=== PATIENT | female | born 1960 | race Caucasian/White ===

== ENCOUNTER 2020-05-25 17:00 | Outpatient (CLI) | payer OTHER, SELFPAY ==
--- NOTE | ~2020-05-25 | XR_ITS ---
XR foot RT 2V 05/25/2020 17:25 Indication: Right fifth toe pain. Trauma 8 weeks ago. Procedure: 2 views right foot Comparison: 06/07/2018 Findings: There is a healing nondisplaced extra-articular fracture right fifth proximal phalanx. Ther e is associated callus formation. No other fracture. Lisfranc joint intact. Impression: 1: Healing nondisplaced extra-articular fracture right fifth proximal phalanx. Reviewed, dictated and finalized at location A. Impression: 1: Healing nondisplaced extra-articular fracture right fifth proximal phalanx.
== END 2020-05-25 17:01 | disposition home or self-care (01) ==
PROVIDERS: PCP Family Medicine; Visit Provider Family Medicine
DX: M79.671 Pain in right foot (principal); S92.514D Nondisplaced fracture of proximal phalanx of right lesser toe(s), subsequent encounter for fracture with routine healing
CPT/HCPCS: 73620

== ENCOUNTER 2020-07-04 14:03 | Outpatient (CLI) | payer OTHER, SELFPAY ==
--- NOTE | ~2020-07-04 | XR_ITS ---
XR foot RT 2V DATE: 07/04/2020 14:24 INDICATION: Unspecified fracture of right toe TECHNIQUE: AP and lateral views COMPARISON: 05/25/2020 right foot FINDINGS: There is a linear oblique fracture through the distal shaft, neck and head of the proximal phalanx of the fifth toe, with mild lateral displacement. No significant change in position or alignm ent since 05/25/2020. There is callus formation consistent with healing. No other fracture or dislocation. IMPRESSION: Healing fracture of the proximal phalanx of the fifth toe Reviewed, dictated and finalized at location A.
== END 2020-07-04 14:04 | disposition home or self-care (01) ==
PROVIDERS: PCP Family Medicine; Visit Provider Physician Assistant
DX: S92.911D Unspecified fracture of right toe(s), subsequent encounter for fracture with routine healing (principal); X58.XXXD Exposure to other specified factors, subsequent encounter
CPT/HCPCS: 73620

== ENCOUNTER 2021-12-29 13:29 | Emergency (ER) | payer OTHER, SELFPAY ==
--- NOTE | ~2021-12-29 | XR_ITS ---
EXAMINATION: XR finger 5th LT min 2V DATE: 12/29/2021 13:51 INDICATION: Left hand fifth digit pain. Fall. TECHNIQUE: 4 views of left hand fifth digit were obtained. COMPARISON: None. FINDINGS: There is an oblique fracture of metaphysis of fifth proximal phalanx. The distal fracture f ragment demonstrates 5 mm palmar displacement, 38 degrees dorsal angulation, and 12 degrees medial an gulation. Joint spaces are normal. IMPRESSION: 1. Oblique fracture of metaphysis of fifth proximal phalanx. Reviewed, dictated and finalized at location A. SETTER
[2021-12-29 13:41] VITALS: BP 184/94; PULSE 84; RESP 18; TEMP 36.6; O2SAT 100
--- NOTE | 2021-12-29 13:51 | ED.UPPEXIN ---
HPI - Extremity Injury (Upper) General Chief Complaint: Extremity Injury, Upper Stated Complaint: fall/lt hand injury Time Seen by Provider: 12/29/21 13:52 Source: patient, RN notes reviewed and old records reviewed Mode of arrival: ambulatory Limitations: no limitations History of Present Illness HPI narrative: 61 year old female who presents to express care with complaints of fall onto her left 5th finger when she tripped on the court while playing tennis.She also has small abrasion to her left knee but denies any other injury or pain, denies hitting her head. Patient has tear to skin of radial side of 5th finger nail tissue no tear or injury to nail. She has obvious swelling and deformity noted to the left 5th finger proximal aspect of finger with stated pain, can't take Ibuprofen because of kidney cyst. MD complaint: injury to: left and finger (5th) Onset (ago): minute(s) (30 minutes ago) Other Extremity Injury: Left: fingers (5th) Related Data Allergies Allergy/AdvReac Type Severity Reaction Status Date / Time Sulfa (Sulfonamide Allergy Unknown Rash Verified 12/29/21 13:45 Antibiotics) Review of Systems Review of Systems: CONSTITUTIONAL: Denies fever, chills, or sweats. EYES: Denies visual changes, redness, or discharge. ENT: Denies rhinorrhea, congestion, sore throat, or otalgia. CARDIOVASCULAR: Denies chest pain, palpitations, or edema. RESPIRATORY: Denies cough or dyspnea. GASTROINTESTINAL: Denies abdominal pain, nausea, vomiting, or diarrhea. GENITOURINARY: Denies dysuria or hematuria. SKIN: Denies rash or itching. MUSCULOSKELETAL: Denies back pain, positive for left 5th finger joint pain and swelling, or myalgia. NEUROLOGIC: Denies headache, numbness, or weakness. PSYCHIATRIC: Positive for history of anxiety or depression. All systems reviewed & are unremarkable except as noted in HPI and below PMFSH Past Medical History Medical History (Updated 12/29/21 @ 14:38 by Whitney Hills NP) Anxiety Cyst of kidney, acquired Diverticulitis GERD (gastroesophageal reflux disease) HLD (hyperlipidemia) Osteoporosis Surgical History Surgical History (Updated 12/29/21 @ 14:12 by Whitney Hills NP) H/O: hysterectomy has one ovary and tube Family History Family History Sibling Depression Family history of diabetes mellitus in first degree relative Patient's sister is in good health Father Family history of heart disease in male family member before age 55 Other Cerebrovascular accident Diabetes mellitus Family history of coronary artery disease Family history of hypercholesterolemia Family history of malignant neoplasm of uterus Family history of mental disorder Hypertension Social History Social History Smoking status: Former smoker Second hand tobacco smoke exposure: No Smoking end date: 10/26/11 Alcohol intake: current Comments At time of signature, agree with nursing past medical, surgical, social and family history. There is no relevant family history pertinent to the presenting complaint Exam Narrative: GENERAL: Well-appearing, well-nourished, and in no acute distress. HEAD: Normocephalic, atraumatic. EYES: PERRLA and EOMI. ENT: Nares clear, no rhinorrhea or epistaxis. Mucous membranes moist. NECK: Supple.no lymphadenopathy CHEST: Clear to auscultation. No respiratory distress.SAO2 100% on room air HEART: Regular rate and rhythm. No murmur heard. Normal peripheral pulses. ABDOMEN: Soft, nontender, nondistended, normal active bowel sounds. EXTREMITIES: Normal range of motion. No edema.Exception noted to left 5th finger with obvious swelling and deformity noted at proximal and PIP of left 5th finger after fall onto hand when she tripped and fell at tennis court today, circulation and sensation is intact, unable to fully move left 5th finger. SKIN: Warm, dry, no rash
== END 2021-12-29 14:47 | disposition home or self-care (01) ==
PROVIDERS: Emergency Provider Registered Nurse; PCP Family Medicine
DX: S62.617A Displaced fracture of proximal phalanx of left little finger, initial encounter for closed fracture (principal); W01.0XXA Fall on same level from slipping, tripping and stumbling without subsequent striking against object, initial encounter; Y93.73 Activity, racquet and hand sports; K21.9 Gastro-esophageal reflux disease without esophagitis; E78.5 Hyperlipidemia, unspecified; M81.0 Age-related osteoporosis without current pathological fracture; Z87.891 Personal history of nicotine dependence
CPT/HCPCS: 29130; 73140; 99214; G0463

== ENCOUNTER 2022-01-06 14:33 | Outpatient (CLI) | payer OTHER, SELFPAY ==
--- NOTE | ~2022-01-06 | XR_ITS ---
XR hand LT min 3V DATE: 01/06/2022 14:48 INDICATION: Post reduction of fifth digit fracture one week ago TECHNIQUE: 4 views COMPARISON: 12/29/2021 left fifth digit FINDINGS: There is a linear oblique fracture through the metaphysis and proximal shaft of the proxima l phalanx of the fifth digit greater than 50% anterior displacement and approximately 1.4 mm ulnar di splacement, with minimal angulation deformity. There is a dorsal splint of the fifth digit. IMPRESSION: Splinted fracture of proximal phalanx of fifth digit with reduction of prominent apex ant erior angulation since 12/29/2021 Reviewed, dictated and finalized at location A. IMPRESSION: Splinted fracture of proximal phalanx of fifth digit with reduction of prominent apex anterior angulation since 12/29/2021
== END 2022-01-06 14:34 | disposition home or self-care (01) ==
LOC: ANHIMG 14:36
PROVIDERS: PCP Family Medicine; Visit Provider Plastic Surgery
DX: S62.617D Displaced fracture of proximal phalanx of left little finger, subsequent encounter for fracture with routine healing (principal); X58.XXXD Exposure to other specified factors, subsequent encounter
CPT/HCPCS: 73130

== ENCOUNTER 2022-05-14 14:13 | Outpatient (CLI) | payer OTHER, SELFPAY ==
--- NOTE | ~2022-05-14 | XR_ITS ---
XR hand LT min 3V DATE: 05/14/2022 14:35 INDICATION: Fracture of left fifth proximal phalanx on 12/29/2021 TECHNIQUE: 3 views of left hand COMPARISON: 12/29/2021 left fifth digit 01/06/2022 left hand FINDINGS: There is organized callus formation bridging the fracture of the metaphysis of the proximal phalanx of the fifth digit. There is up to proxy 20 degrees apex anterior angulation. Diffuse osteopenia. Osteoarthritis at first carpometacarpal joint. IMPRESSION: Advanced healing of metaphyseal fracture of proximal phalanx of fifth digit with apex ant erior angulation measuring up to approximately 39 degrees Reviewed, dictated and finalized at location B. IMPRESSION: Advanced healing of metaphyseal fracture of proximal phalanx of fif th digit with apex anterior angulation measuring up to approximately 39 degrees
== END 2022-05-14 14:14 | disposition home or self-care (01) ==
PROVIDERS: PCP Family Medicine; Visit Provider Plastic Surgery
DX: S62.617D Displaced fracture of proximal phalanx of left little finger, subsequent encounter for fracture with routine healing (principal); X58.XXXD Exposure to other specified factors, subsequent encounter
CPT/HCPCS: 73130

== ENCOUNTER → 2022-08-08 02:14 | Outpatient (CLI) | payer OTHER, SELFPAY ==
[2022-08-08 11:23] LABS: SARS-CoV-2 RNA PCR Negative
== END ==
PROVIDERS: PCP Physician Assistant; Visit Provider Physician Assistant
DX: R05.9 Cough, unspecified (principal); Z20.822 Contact with and (suspected) exposure to COVID-19
CPT/HCPCS: C9803; U0003; U0005

== ENCOUNTER 2022-12-18 01:22 | Day surgery (SDC) | payer OTHER, SELFPAY ==
[2022-12-10 15:12] VITALS: BMI 21.9
--- NOTE | 2022-12-18 10:54 | PM.HPGS ---
History of Present Illness History of Present Illness Consent: Risks, benefits, and alternatives have been discussed and questions answered. Patient agrees to proceed with procedure. Chief complaint: neoplasm screening Narrative: Abigail Jenkins is a 62 year old female with referred for colon cancer screening. Her last colonoscopy was 10 years ago and was unremarkable except for some diverticulosis. Review of Systems Review of Systems: All systems reviewed & are unremarkable except as noted in HPI and below PMFSH Past Medical History Medical History Anxiety Cyst of kidney, acquired Diverticulitis GERD (gastroesophageal reflux disease) HLD (hyperlipidemia) Osteoporosis Surgical History Surgical History H/O: hysterectomy has one ovary and tube Family History Family History Sibling Depression Family history of diabetes mellitus in first degree relative Patient's sister is in good health Father Family history of heart disease in male family member before age 55 Other Cerebrovascular accident Diabetes mellitus Family history of coronary artery disease Family history of hypercholesterolemia Family history of malignant neoplasm of uterus Family history of mental disorder Hypertension Social History Social History Smoking status: Former smoker Tobacco type: cigarettes Second hand tobacco smoke exposure: No Smoking end date: 10/26/11 Alcohol intake: current Drinks per week: 6 Substance use type: does not use Living arrangements: with family Spiritual care concerns: No Meds Home Medications and Allergies Home Medications Medication Instructions Recorded Confirmed Type Lactobacillus 1 cap PO DAILY 12/10/22 12/18/22 History acidophilus-Bifidobac.animalis 2.5 billion cell capsule (Daily Probiotic) aspirin 81 mg tablet 81 mg PO DAILY 12/10/22 12/18/22 History cholecalciferol (vitamin D3) 25 25 mcg PO DAILY 12/10/22 12/18/22 History mcg (1,000 unit) tablet glucosamine sulfate 750 mg tablet 750 mg PO DAILY 12/10/22 12/18/22 History Allergies Allergy/AdvReac Type Severity Reaction Status Date / Time Sulfa (Sulfonamide Allergy Unknown Rash Verified 12/18/22 11:48 Antibiotics) Exam Const: General: alert Orientation/consciousness: patient oriented x3 Resp: Auscultation: clear to auscultation bilaterally Cardio: Rhythm: regular rhythm GI: GI Palp: Yes Soft to palpation and No Tenderness to palpation present (GI) Neuro: General: patient oriented x3 Assessment and Plan Assessment and plan (1) Colon cancer screening: Code(s): Z12.11 - Encounter for screening for malignant neoplasm of colon Status: Acute Assessment and Plan: Colonoscopy with possible biopsy or polypectomy or cautery or injection of substances.
[2022-12-18 11:50] VITALS: BP 131/80; PULSE 81; RESP 16; TEMP 36.2; O2SAT 100
[2022-12-18] MEDS: LACTATED RINGERS 1,000 ML 150 ML IV CONT (12:00)
--- NOTE | 2022-12-18 12:18 | WPDANESEPPF ---
Anes - Initial Pre Proc Eval Procedure: Operation Date: 12/18/22 13:00 Proposed Procedures p Screening Colonoscopy - Ronan Colin MD Date/Time: 12/18/22 12:18 Surgeon: Ronan Colin MD Pre Op Diagnosis: neoplasm screening Patient Data Age: 62 Gender: F Height: 1.57 m Weight: 54.8 kg Last Vital Signs Temp 97.1 F L 12/18/22 11:50 Pulse 81 12/18/22 11:50 Resp 16 12/18/22 11:50 BP 131/80 12/18/22 11:50 Pulse Ox 100 12/18/22 11:50 O2 Del Method Room Air 12/18/22 11:50 Allergies Allergy/AdvReac Type Severity Reaction Status Date / Time Sulfa (Sulfonamide Allergy Unknown Rash Verified 12/18/22 11:48 Antibiotics) Home Medications Medication Instructions Recorded Confirmed Type Lactobacillus 1 cap PO DAILY 12/10/22 12/18/22 History acidophilus-Bifidobac.animalis 2.5 billion cell capsule (Daily Probiotic) aspirin 81 mg tablet 81 mg PO DAILY 12/10/22 12/18/22 History cholecalciferol (vitamin D3) 25 25 mcg PO DAILY 12/10/22 12/18/22 History mcg (1,000 unit) tablet glucosamine sulfate 750 mg tablet 750 mg PO DAILY 12/10/22 12/18/22 History Patient hx anesthesia problems: none Family hx anesthesia problems: none Results Review: All pre-operative results and documents have been reviewed as part of the pre-operative evaluation. [facility] Past Medical History Medical History (Updated 12/18/22 @ 10:55 by Ronan Colin MD) Anxiety Cyst of kidney, acquired Diverticulitis GERD (gastroesophageal reflux disease) HLD (hyperlipidemia) Osteoporosis Surgical History Surgical History (Updated 12/29/21 @ 14:12 by Whitney Hills NP) H/O: hysterectomy has one ovary and tube Family History Family History Sibling Depression Family history of diabetes mellitus in first degree relative Patient's sister is in good health Father Family history of heart disease in male family member before age 55 Other Cerebrovascular accident Diabetes mellitus Family history of coronary artery disease Family history of hypercholesterolemia Family history of malignant neoplasm of uterus Family history of mental disorder Hypertension Social History Social History Smoking status: Former smoker Tobacco type: cigarettes Second hand tobacco smoke exposure: No Smoking end date: 10/26/11 Alcohol intake: current Drinks per week: 6 Substance use type: does not use Living arrangements: with family Spiritual care concerns: No Anes - Eval Final PreProcedure Day of Procedure 12/18/22 12:18 Patient weight: normal Heart: regular rate and rhythm Lungs: clear to auscultation Airway: Mallampati scale class II Neurological: alert and oriented Last oral intake: >/= 8 hours ASA classification: II Emergent: no Anesthetic plan: proceed Anesthesia type and monitoring: general GIVS and standard monitoring Results Review: All pre-operative results and documents have been reviewed as part of the pre-operative evaluation. Informed Consent: The patient's anesthetic plan and its attendant risks and benefits were discussed with the patient/family/POA. Questions were solicited and answers provided to the satisfaction of the patient/family/POA.
[2022-12-18 12:48] VITALS: BP 125/70; PULSE 72; RESP 22; O2SAT 100
[2022-12-18 12:58] VITALS: BP 126/74; PULSE 61; RESP 16; O2SAT 100
[2022-12-18 13:08] VITALS: BP 146/74; PULSE 62; RESP 22; O2SAT 100
== END 2022-12-18 13:19 | disposition home or self-care (01) ==
PROVIDERS: PCP Physician Assistant; Visit Provider Internal Medicine Gastroenterology
PROC: 0DJD8ZZ Inspection of Lower Intestinal Tract, Via Natural or Artificial Opening Endoscopic (ICD-10-PCS; CPT 45378; principal; 2022-12-18 13:00)
DX: Z12.11 Encounter for screening for malignant neoplasm of colon (principal); K62.1 Rectal polyp; K57.30 Diverticulosis of large intestine without perforation or abscess without bleeding; E78.5 Hyperlipidemia, unspecified; K21.9 Gastro-esophageal reflux disease without esophagitis; M81.0 Age-related osteoporosis without current pathological fracture; F41.9 Anxiety disorder, unspecified; Z87.891 Personal history of nicotine dependence; Z79.82 Long term (current) use of aspirin
CPT/HCPCS: 45380; 88305; J2704; J7120

== ENCOUNTER 2023-02-11 01:16 | Day surgery (SDC) | payer OTHER, SELFPAY ==
[2023-02-10 08:54] VITALS: BMI 22.1
--- NOTE | 2023-02-10 13:33 | PM.HPGS ---
History of Present Illness History of Present Illness Consent: Risks, benefits, and alternatives have been discussed and questions answered. Patient agrees to proceed with procedure. Chief complaint: hematochezia, Rectal Mass Narrative: Abigail Jenkins is a 62 year old female who recently underwent screening colonoscopy with removal of 1 small rectal polyp. She has had blood her stools since that procedure and states she had some of it prior to then as well. She feels the urge to defecate. She was seen in the office this week and rectal exam reveals nodularity in the posterior rectum. Review of Systems Review of Systems: All systems reviewed & are unremarkable except as noted in HPI and below PMFSH Past Medical History Medical History Anxiety Cyst of kidney, acquired Diverticulitis GERD (gastroesophageal reflux disease) Hematochezia HLD (hyperlipidemia) Hyperplastic colon polyp Osteoporosis Rectal mass Rectal pain Surgical History Surgical History H/O: hysterectomy has one ovary and tube Family History Family History Sibling Depression Family history of diabetes mellitus in first degree relative Patient's sister is in good health Father Family history of heart disease in male family member before age 55 Other Cerebrovascular accident Diabetes mellitus Family history of coronary artery disease Family history of hypercholesterolemia Family history of malignant neoplasm of uterus Family history of mental disorder Hypertension Social History Social History Smoking status: Former smoker Tobacco type: cigarettes Second hand tobacco smoke exposure: No Smoking end date: 10/26/11 Alcohol intake: current Drinks per week: 6 Substance use: never Substance use type: does not use Living arrangements: with family Spiritual care concerns: No Meds Home Medications and Allergies Home Medications Medication Instructions Recorded Confirmed Type Lactobacillus 1 cap PO DAILY 12/10/22 02/10/23 History acidophilus-Bifidobac.animalis 2.5 billion cell capsule (Daily Probiotic) aspirin 81 mg tablet 81 mg PO DAILY 12/10/22 02/10/23 History cholecalciferol (vitamin D3) 25 25 mcg PO DAILY 12/10/22 02/10/23 History mcg (1,000 unit) tablet glucosamine sulfate 750 mg tablet 750 mg PO DAILY 12/10/22 02/10/23 History tramadol 50 mg tablet 50 mg PO Q6H PRN pain #10 tabs 02/09/23 02/10/23 Rx Allergies Allergy/AdvReac Type Severity Reaction Status Date / Time Sulfa (Sulfonamide Allergy Unknown Rash Verified 02/09/23 13:57 Antibiotics) Exam Const: General: alert Orientation/consciousness: patient oriented x3 Resp: Auscultation: clear to auscultation bilaterally Cardio: Rhythm: regular rhythm GI: GI Palp: Yes Soft to palpation and No Tenderness to palpation present (GI) Neuro: General: patient oriented x3 Assessment and Plan Assessment and plan (1) Rectal mass: Code(s): K62.89 - Other specified diseases of anus and rectum Status: Acute Assessment and Plan: Sigmoidoscopy with possible biopsy or polypectomy or cautery or injection of substances.
[2023-02-11 13:06] VITALS: BP 143/73; PULSE 72; RESP 16; TEMP 36.5; O2SAT 100
[2023-02-11] MEDS: LACTATED RINGERS 1,000 ML 150 ML IV CONT (13:11)
--- NOTE | 2023-02-11 13:16 | WPDANESEPPF ---
Anes - Initial Pre Proc Eval Procedure: Operation Date: 02/11/23 14:00 Proposed Procedures p Flexible Sigmoidoscopy - Ronan Colin MD Date/Time: 02/11/23 13:16 Surgeon: Ronan Colin MD Pre Op Diagnosis: hematochezia, Rectal Mass Patient Data Age: 62 Gender: F Height: 1.57 m Weight: 53.3 kg Last Vital Signs Temp 97.7 F 02/11/23 13:06 Pulse 72 02/11/23 13:06 Resp 16 02/11/23 13:06 BP 143/73 H 02/11/23 13:06 Pulse Ox 100 02/11/23 13:06 O2 Del Method Room Air 02/11/23 13:06 Allergies Allergy/AdvReac Type Severity Reaction Status Date / Time Sulfa (Sulfonamide Allergy Unknown Rash Verified 02/11/23 13:05 Antibiotics) Home Medications Medication Instructions Recorded Confirmed Type Lactobacillus 1 cap PO DAILY 12/10/22 02/11/23 History acidophilus-Bifidobac.animalis 2.5 billion cell capsule (Daily Probiotic) cholecalciferol (vitamin D3) 25 25 mcg PO DAILY 12/10/22 02/11/23 History mcg (1,000 unit) tablet glucosamine sulfate 750 mg tablet 750 mg PO DAILY 12/10/22 02/11/23 History tramadol 50 mg tablet 50 mg PO Q6H PRN pain #10 tabs 02/09/23 02/11/23 Rx Patient hx anesthesia problems: none Family hx anesthesia problems: none Results Review: All pre-operative results and documents have been reviewed as part of the pre-operative evaluation. [facility] Past Medical History Medical History Anxiety Cyst of kidney, acquired Diverticulitis GERD (gastroesophageal reflux disease) Hematochezia HLD (hyperlipidemia) Hyperplastic colon polyp Osteoporosis Rectal mass Rectal pain Surgical History Surgical History H/O: hysterectomy has one ovary and tube Family History Family History Sibling Depression Family history of diabetes mellitus in first degree relative Patient's sister is in good health Father Family history of heart disease in male family member before age 55 Other Cerebrovascular accident Diabetes mellitus Family history of coronary artery disease Family history of hypercholesterolemia Family history of malignant neoplasm of uterus Family history of mental disorder Hypertension Social History Social History Smoking status: Former smoker Tobacco type: cigarettes Second hand tobacco smoke exposure: No Smoking end date: 10/26/11 Alcohol intake: current Drinks per week: 6 Substance use: never Substance use type: does not use Living arrangements: with family Spiritual care concerns: No Anes - Eval Final PreProcedure Day of Procedure 02/11/23 13:16 Patient weight: normal Heart: regular rate and rhythm Lungs: clear to auscultation Airway: Mallampati scale class II Neurological: alert and oriented Last oral intake: >/= 8 hours ASA classification: II Emergent: no Anesthetic plan: proceed Anesthesia type and monitoring: general GIVS and standard monitoring Results Review: All pre-operative results and documents have been reviewed as part of the pre-operative evaluation. Informed Consent: The patient's anesthetic plan and its attendant risks and benefits were discussed with the patient/family/POA. Questions were solicited and answers provided to the satisfaction of the patient/family/POA.
[2023-02-11 13:33] VITALS: BP 117/75; PULSE 74; RESP 18; O2SAT 99
[2023-02-11 13:43] VITALS: BP 127/65; PULSE 68; RESP 18; O2SAT 99
[2023-02-11 13:53] VITALS: BP 145/92; PULSE 70; RESP 20; O2SAT 99
== END 2023-02-11 14:01 | disposition home or self-care (01) ==
PROVIDERS: PCP Physician Assistant; Visit Provider Internal Medicine Gastroenterology
PROC: 0DJD8ZZ Inspection of Lower Intestinal Tract, Via Natural or Artificial Opening Endoscopic (ICD-10-PCS; CPT 45330; principal; 2023-02-11 14:00)
DX: C20 Malignant neoplasm of rectum (principal); Z87.891 Personal history of nicotine dependence
CPT/HCPCS: 45331; 88305; J2704; J7120

== ENCOUNTER 2023-10-16 17:43 | Emergency (ER) | payer OTHER, SELFPAY ==
[2023-10-16] VITALS (9 sets, daily range): BP systolic 125–156; BP diastolic 69–94; PULSE 82–100; RESP 13–18; TEMP 36.4–36.7; O2SAT 95–100
--- NOTE | ~2023-10-16 | CT_ITS ---
EXAMINATION: CT abdomen pelvis w con DATE: 10/16/2023 19:44 INDICATION: Bleeding from rectal incision site. Surgery on September 16, 2023 for rectal cancer. TECHNIQUE: Computed tomography (CT) of the abdomen and pelvis was performed with 100 CC Omnipaque 350 intravenous contrast. Automated exposure control and iterative reconstruction technique were employe d. Exam dose: 202.68 mGy-cm total exam DLP. COMPARISON: 03/01/2016 CT abdomen pelvis FINDINGS: The lung bases are clear of infiltrate or consolidation. Normal heart size. No pericardial or pleural effusion. The gallbladder is present. No gallbladder wall thickening or pericholecystic fluid or fat stranding. No bile duct dilatation. A couple of hepatic cysts are noted, the larger measuring up to 9.5 mm dimension. The liver, spleen a nd pancreas otherwise appear unremarkable. Normal morphology of the adrenal glands. No renal mass lesion or urinary tract calculus or hydroureteronephrosis is detected. The urinary blad ralph appears unremarkable. There is atherosclerotic calcification but normal caliber of the abdominal aorta. No intraperitoneal or retroperitoneal or pelvic mass lesion or adenopathy or ascites is noted. Left colostomy is noted. There is a prominent amount of fecal material in the colon. There are some f luid levels in the small bowel but no apparent bowel obstruction or intraperitoneal free air. No abscess is evident. No suspicious osteolytic or osteoblastic lesions. There is prominent degenerative disc disease at L5- S1. IMPRESSION: Status post left colostomy No abscess is detected Hepatic cysts Reviewed, dictated and finalized at [facility]. Reviewed, dictated and finalized at [facility] [employer]
--- NOTE | 2023-10-16 18:41 | ED.GENADULT ---
HPI - General Adult General Chief complaint: Unspecified <OTF [place]as Last Filed: 10/16/23 23:02> Stated complaint: Surgical Site Infection, Bleeding from Site <OTF [place]as Last Filed: 10/16/23 23:02> Time Seen by Provider: 10/16/23 18:21 <OTF [place]as Last Filed: 10/16/23 23:02> Source: patient <OTF [place]as Last Filed: 10/16/23 23:02> Mode of arrival: ambulatory <OTF [place]as Last Filed: 10/16/23 23:02> Limitations: no limitations <OTF [place]as Last Filed: 10/16/23 23:02> History of Present Illness HPI narrative: This is a 63 year old female that presents to the ER for rectal bleeding. Reports having rectal cancer removed and colostomy performed by Dr. Villa about one week ago at [facility]. She has had increasing foul smelling rectal drainage and redness. Denies fever, abdominal pain or vomiting. <OTF [place] Last Filed: 10/16/23 23:02> Related Data Home medications: Home Medications Medication Instructions Recorded Confirmed Lactobacillus 1 cap PO DAILY 12/10/22 02/11/23 acidophilus-Bifidobac.animalis 2.5 billion cell capsule (Daily Probiotic) cholecalciferol (vitamin D3) 25 25 mcg PO DAILY 12/10/22 02/11/23 mcg (1,000 unit) tablet glucosamine sulfate 750 mg tablet 750 mg PO DAILY 12/10/22 02/11/23 <OTF [place] Last Filed: 10/16/23 23:02> Allergies/adverse reactions: Allergies Allergy/AdvReac Type Severity Reaction Status Date / Time Sulfa (Sulfonamide Allergy Unknown Rash Verified 02/11/23 13:05 Antibiotics) <OTF [place]as Last Filed: 10/16/23 23:02> Review of Systems Review of Systems: CONSTITUTIONAL: Denies fever GASTROINTESTINAL: Denies abdominal pain, nausea, vomiting <OTF [place] Last Filed: 10/16/23 23:02> All systems reviewed & are unremarkable except as noted in HPI and below <Margaret Becerra PA-C - Last Filed: 10/16/23 23:02> PMFSH Past Medical History Medical History: Medical History Anxiety Cyst of kidney, acquired Diverticulitis GERD (gastroesophageal reflux disease) Hematochezia HLD (hyperlipidemia) Hyperplastic colon polyp Osteoporosis Rectal mass Rectal pain <Margaret Becerra PA-C - Last Filed: 10/16/23 23:02> Surgical History Surgical History: Surgical History H/O: hysterectomy has one ovary and tube <Margaret Becerra PA-C - Last Filed: 10/16/23 23:02> Family History Family History: Family History Sibling Depression Family history of diabetes mellitus in first degree relative Patient's sister is in good health Father Family history of heart disease in male family member before age 55 Other Cerebrovascular accident Diabetes mellitus Family history of coronary artery disease Family history of hypercholesterolemia Family history of malignant neoplasm of uterus Family history of mental disorder Hypertension <Margaret Becerra PA-C - Last Filed: 10/16/23 23:02> Social History Social History: Social History Smoking status: Former smoker Tobacco type: cigarettes Second hand tobacco smoke exposure: No Smoking end date: 10/26/11 Alcohol intake: current Drinks per week: 6 Substance use: never Substance use type: does not use Living arrangements: with family Spiritual care concerns: No <Margaret Becerra PA-C - Last Filed: 10/16/23 23:02> Exam Narrative: GENERAL: Well-appearing, well-nourished, and in no acute distress. HEAD: Normocephalic, atraumatic. EYES: EOMI. CHEST: Clear to auscultation. No respiratory distress. No wheezes rales or rhonchi HEART: Regular rate and rhythm. No murmur heard. Normal periphe
[2023-10-16 19:12] LABS: Basophils Percent Auto 0.4 % (0.2-1.2); Eosinophils Absolute Auto 0.1 K/mm3 (0-0.3); Eosinophils Percent Auto 0.8 % (0-4.4); Hematocrit 35.4 % (37.0-47.0); Hemoglobin 11.5 g/dL (12.0-15.0); Immature Granulocyte Absolute 0.02 K/mm3 (0.00-0.031); Immature Granulocyte Percent A 0.2 % (0-0.5); Lymphocytes Absolute Auto 0.77 K/mm3 (0.9-3.2); Lymphocytes Percent Auto 8.7 % (18.3-44.2); Mean Corpuscular HGB Conc 32.5 g/dl (32-36); Mean Corpuscular Hemoglobin 32.6 pg (26-34); Mean Corpuscular Volume 100.3 fl (80-100); Mean Platelet Volume 10.2 fl (7.4-10.4); Monocytes Absolute Auto 1.2 K/mm3 (0.1-0.6); Monocytes Percent Auto 12.9 % (2.6-8.5); Neutrophils Absolute Auto 6.9 K/mm3 (1.3-6.7); Platelet Count Result 330 k/mm3 (150-375); Red Blood Count 3.53 M/mm3 (4.2-5.4); Red Cell Distribution Width 13.1 % (11.5-14.5); White Blood Count 8.9 K/mm3 (4.5-10.0)
[2023-10-16 19:20] LABS: Alanine Aminotransferase 19 U/L (6-35); Albumin Level 3.9 g/dL (3.5-5.1); Alkaline Phosphatase 108 U/L (38-126); Anion Gap 9 mmol/L (8-16); Aspartate Amino Transferase 25 U/L (14-36); Bilirubin,Total 0.4 mg/dL (0.2-1.3); Blood Urea Nitrogen 12 mg/dL (7-17); Calcium 9.3 mg/dL (8.4-10.2); Carbon Dioxide 27 mmol/L (22-30); Chloride 100 mmol/L (98-107); Estimated CRCL calculation 58 ml/min; Estimated Glomerular Filt Rate > 60; Glucose 117 mg/dL (65-110); Potassium 3.5 mmol/L (3.4-5.0); Sodium 136 mmol/L (137-145)
[2023-10-16 19:21] LABS: Lactic Acid Reflex 0.8 mmol/L (0.7-2.0)
[2023-10-16 19:25] LABS: INR 0.9; Prothrombin Time 12.8 Seconds (11.1-14.7)
[2023-10-16 19:26] LABS: Partial Thromboplastin Time 32.2 SECONDS (22.3-36.8)
--- NOTE | 2023-10-16 20:49 | PC.NURSE ---
Spoke to [facility] for triage questions. They will f/u when a bed becomes available.
[2023-10-16 21:03] LABS: CRP 3.2 mg/dL (<1.0)
[2023-10-16] MEDS: oxyCODONE/ACETAMINOPHEN (*CRX) 5-325 MG TABLET 1 TABLET PO (21:06)
[2023-10-16] MEDS: metroNIDAZOLE 500 MG/ISO 100ML 500 MG/100 ML BAG 100 MG IVPB (21:07)
--- NOTE | 2023-10-16 21:10 | PC.NURSE ---
Pt got a room at [facility] room 6922. Transport to be set up.
== END 2023-10-16 22:08 | disposition short-term general hospital (02) ==
PROVIDERS: Emergency Provider Physician Assistant; PCP Physician Assistant
DX: T81.41XA Infection following a procedure, superficial incisional surgical site, initial encounter (principal); K61.1 Rectal abscess; C20 Malignant neoplasm of rectum; E78.5 Hyperlipidemia, unspecified; K21.9 Gastro-esophageal reflux disease without esophagitis; Z93.3 Colostomy status; Z86.010 Personal history of colon polyps; M81.0 Age-related osteoporosis without current pathological fracture; Z90.710 Acquired absence of both cervix and uterus; Z87.891 Personal history of nicotine dependence; K76.89 Other specified diseases of liver; Y83.8 Other surgical procedures as the cause of abnormal reaction of the patient, or of later complication, without mention of misadventure at the time of the procedure
CPT/HCPCS: 36415; 74177; 80053; 83605; 85025; 85610; 85730; 86140; 86850; 86900; 86901; 87040; 87070; 87077; 87147; 87186; 87205; 96365; 96367; 99285; A9270; J0696; J1836; Q9967